=== PATIENT | female | born 1975 | race Two or more races ===

== ENCOUNTER 2020-06-27 09:52 | Outpatient (AMBR) | payer BC, SELFPAY ==
--- NOTE | 2020-06-27 10:36 | PTNOTE_ITS ---
PT OP Initial Eval Patient Information Visit Reasons: POST OP RIGHT KNEE Medical Diagnosis: S83.511D Treatment Dx #1: Right Knee Mobility Deficits Treatment Dx #2: Right Knee Weakness Start of Care: 06/27/20 Date of Onset: 06/01/20 Initial Assessment Subjective Pt is a 44 y/o female s/p right ACL reconstruction and medial and lateral meniscectomy 06/01/20 secondary to a fall at home. Pt doesn't have a lot of knee pain (3/10) and solis seen using her pool. Pt currently has limitation with deep squat, balance, prolonged walking, chores, self care, and recreational activities. Objective Right Knee AROM: -12 deg to 100 deg Right Knee MMTs Quads: 3-/5 Hs: 3-/5 Right Hip MMTs Glute Med: 3-/5 Glute Max: 3-/5 SLS: unable Assessment Pt demonstrate right knee mobility and strength deficits s/p ACL reconstruction leading to decline function. Pt will benefit from physical therapy to increase strength, ROM, and work on stability. [employer] Goals 1) Increase right knee AROM WNL in 12 wks to be able to perform squatting activities 2) Increase right knee MMTs grossly to 4-/5 in 12 wks to be able to perform stairs and steps 3) Increase right hip MMTs grossly to 3+/5 in 12 wks to be able to perform chores 4) Decrease knee pain to 2/10 in 12 wks to be able to walk more than 1.5 hrs 5) Increase SLS to 20 sec in 12 wks to be able to perform self care activities 6) Indep with HEP Treatment Plan 1) Manual Therapy 2) Therapeutic Activities 3) Therapeutic Exercises 4) Modalities (ice, heat) 5) Balance Training Frequency and Duration 2 x wk for 12 wks Certification Dates: 06/27/20 to 09/27/20 Office Procedures PT Procedures PT Date of Service: 06/27/20 OP PT Eval Mod Complex 30 minutes: Yes
--- NOTE | 2020-07-01 14:29 | PT.ODAYNRPT ---
PT Outpatient Daily Note Date of Service: 07/01/20 OP Daily Note Visit Reasons: POST OP RIGHT KNEE Outpatient Physical Therapy Treatment Date: 07/01/20 Subjective: Pt's knee is pretty good. Pt's been using the pool to do some light exercises which helps a lot Objective: Please see flow chart for list of ther ex performed Assessment: tolerate exercises performed; Pt was sore and fatigue at the end of PT session. post ice help decrease knee pain Plan: Continue with PT Length of Time (minutes) of Treatment: 40 Minutes Office Procedures PT Procedures PT Date of Service: 07/01/20 Therapeutic Exercise 45 minutes: Yes PT Procedures PT Date of Service: 06/27/20 OP PT Eval Mod Complex 30 minutes: Yes
== END 2020-07-11 23:59 | disposition home or self-care (01) ==
PROVIDERS: PCP Orthopaedic Surgery; Referring Provider Orthopaedic Surgery; Visit Provider Orthopaedic Surgery
DX: S83.511D Sprain of anterior cruciate ligament of right knee, subsequent encounter (principal); M25.562 Pain in left knee; R53.1 Weakness; W19.XXXD Unspecified fall, subsequent encounter
CPT/HCPCS: 97110; 97162

== ENCOUNTER 2020-07-15 10:26 | Outpatient (AMBR) | payer BC, SELFPAY ==
--- NOTE | 2020-07-15 11:13 | PT.ODAYNRPT ---
PT Outpatient Daily Note Date of Service: 07/15/2020 OP Daily Note Visit Reasons: post op right knee Outpatient Physical Therapy Treatment Date: 07/15/20 Subjective: pt states she is on her stationary bike for an hour. her knee doing fine upon visit. Objective: see flow sheet. Assessment: pt completed more time on the bike as it seems easy for her. she does more reps than asked for her exercises. she has no complaints during ther ex. the exercises seem easy for her. increases resistance to green level which she did well with. pt refused ice pack post ther ex. Plan: continue POC per PT. Length of Time (minutes) of Treatment: 30 Minutes Office Procedures PT Procedures PT Date of Service: 07/15/20 Therapeutic Exercise 30 minutes: Yes
--- NOTE | 2020-07-25 10:23 | PT.ODAYNRPT ---
PT Outpatient Daily Note Date of Service: 07/25/20 OP Daily Note Visit Reasons: post op right knee Outpatient Physical Therapy Treatment Date: 07/25/20 Subjective: Pt's knee is better. Pt stated that she hasn't been using her pool much due to ashes falling into the pool making it unsafe. Pt is walking and standing longer with less pain and limitation. Objective: Please see flow chart for list of ther ex performed Assessment: tolerate exercises; fatigue at the end of PT session. cues to correct side step not to perform like tick tock Plan: Continue with PT Length of Time (minutes) of Treatment: 40 Minutes Office Procedures PT Procedures PT Date of Service: 07/15/20 Therapeutic Exercise 30 minutes: Yes PT Procedures PT Date of Service: 07/25/20 Therapeutic Exercise 45 minutes: Yes
--- NOTE | 2020-08-01 11:00 | PT.ODAYNRPT ---
PT Outpatient Daily Note Date of Service: 08/01/2020 OP Daily Note Visit Reasons: post op right knee Outpatient Physical Therapy Treatment Date: 08/01/20 Subjective: pt states she gets on the bike at home for an hour. Objective: see flow sheet. Assessment: noted pt ambulates with antalgic gait pattern prior to treatment and after. she still has unsteadiness with her balance exercise but did not LOB. no difficulty with knee flexion during her squats. LAQs and SAQs with the ankle weight in which did not seem to bother her. she was able to contract the quads with no compensations. Plan: continue POC per PT. Length of Time (minutes) of Treatment: 30 Minutes Office Procedures PT Procedures PT Date of Service: 08/01/20 Therapeutic Exercise 30 minutes: Yes PT Procedures PT Date of Service: 07/15/20 Therapeutic Exercise 30 minutes: Yes PT Procedures PT Date of Service: 07/25/20 Therapeutic Exercise 45 minutes: Yes
--- NOTE | 2020-09-12 15:20 | PT.ODS1RPT ---
PT OP Progress/Discharge Note Date of Service: 09/12/20 Progress Note/DC Note Progress Note/Discharge Note: DC Note Patient Information Visit Reasons: post op right knee Service Continue Service or Discharge: Discharge Discharge Date: 09/12/20 Status Assessment: Pt has been seen for 5 visits (eval + 4 visits) inconsistently. Pt last treated on 08/01/20. Pt no showed last 3 appts (08/09, 08/16, and 09/14) and will be d/c due to non-compliance per attendance policy. Pt did not meet set goals in therapy, thank you for your referrals. Office Procedures PT Procedures PT Date of Service: 08/01/20 Therapeutic Exercise 30 minutes: Yes PT Procedures PT Date of Service: 07/15/20 Therapeutic Exercise 30 minutes: Yes PT Procedures PT Date of Service: 07/25/20 Therapeutic Exercise 45 minutes: Yes
== END 2020-08-10 23:59 | disposition home or self-care (01) ==
PROVIDERS: PCP Family Medicine; Referring Provider Family Medicine; Visit Provider Orthopaedic Surgery
DX: S83.511D Sprain of anterior cruciate ligament of right knee, subsequent encounter (principal); M25.561 Pain in right knee; R53.1 Weakness; Z98.890 Other specified postprocedural states; W19.XXXD Unspecified fall, subsequent encounter
CPT/HCPCS: 97110

== ENCOUNTER → 2025-02-09 | Outpatient (CLI) | payer BC, SELFPAY ==
[2025-02-08 12:54] LABS: Basophils % (Auto) 0 % (0-2.5); Eosinophils # (Auto) 0.2 Thou/mm3 (0.0-0.5); Eosinophils % (Auto) 3 % (0-10); Hematocrit 36.5 % (36.0-46.0); Hemoglobin 11.4 g/dL (12.0-16.0); Immature Granulocytes % (Auto) 0 % (0-0); Immature Granulocytes Auto 0.02 Thou/mm3 (0.00-0.00); Lymphocytes # (Auto) 1.5 Thou/mm3 (1.0-4.8); Lymphocytes % (Auto) 23 % (10-50); Mean Corpuscular HGB Conc 31.2 g/dl (31.0-37.0); Mean Corpuscular Hemoglobin 24.6 pg (25.0-35.0); Mean Corpuscular Volume 79 fL (80-100); Monocytes # (Auto) 0.4 Thou/mm3 (0.0-0.8); Monocytes % (Auto) 7 % (0-12); Neutrophils # (Auto) 4.3 Thou/mm3 (1.8-7.7); Neutrophils % (Auto) 67 % (37-80); Nucleated Red Blood Cell % 0 /100 WBC (0); Platelet Count 313 Thou/mm3 (140-440); RDW Standard Deviation 43.1 fL (36.4-46.3); Red Blood Count 4.63 Miln/mm3 (4.00-5.20); White Blood Count 6.5 Thou/mm3 (3.6-11.0)
[2025-02-08 13:11] LABS: Partial Thromboplastin Time 28.2 Seconds (22.0-36.0); Prothrombin Time 10.9 Seconds (9.0-12.2)
--- NOTE | 2025-02-09 08:30 | XR_ITS ---
Examinations: Ultrasound-guided percutaneous breast biopsy, 1:00 nodule right breast Right breast sonography limited. Exam date and time: February 09, 2025 0905 hours INDICATIONS: BI-RADS 4 suspicious nodule 1:00 position right breast on ultrasound March 04, 2024. Informed consent provided. Technique: A timeout was completed verifying correct patient, procedure, site, positioning, and special equipment if applicable Informed consent provided. The patient was placed in a supine position for the breast biopsy. Sonographic images of the breast were performed for localization of the suspicious nodule The patient's breast was prepped and draped in sterile fashion. Maximum sterile barrier technique, hand hygiene, ultrasound sterile technique 1% lidocaine was used to anesthetize the skin and breast adjacent to the suspicious nodule. Utilizing ultrasonographic guidance, 8 core biopsies were obtained of the suspicious nodule utilizing an 18-gauge BioPince needle. The specimens appears satisfactory. US guided breast biopsy marker placement. Estimated blood loss 3 cc. The patient tolerated the procedure well and there were no complications. Impression: Successful ultrasound-guided percutaneous breast biopsy, 1:00 nodule. Ultrasound guided breast biopsy marker placement.
== END | disposition home or self-care (01) ==
LOC: SDIM 08:15 → SIRX 08:36
PROVIDERS: Radiology Diagnostic Radiology; PCP Nurse Practitioner Family; Referring Provider Nurse Practitioner Family; Visit Provider Nurse Practitioner Family
DX: D24.1 Benign neoplasm of right breast (principal); Z01.812 Encounter for preprocedural laboratory examination
CPT/HCPCS: 19083; 36415; 85025; 85610; 85730; A4648